=== PATIENT | male | born 1955 | race American Indian/Alaskan Native ===

== ENCOUNTER 2018-06-25 14:36 | Emergency (ER) | payer MEDICARE ==
[2018-06-25] MEDS ORDERED: Aspirin 81 MG Tab.Chew PO ONE (15:10)
[2018-06-25] MEDS ORDERED: Ondansetron 4 MG/2 ML SDV IVPUSH ONE (15:12)
[2018-06-25] MEDS ORDERED: fentaNYL 100 MCG/2 ML SDV IVPUSH ONE (15:12)
--- NOTE | 2018-06-25 15:13 | EDM.PDOC ---
ED HPI GENERAL MEDICAL PROBLEM - General Chief Complaint: Chest Pain Stated Complaint: CHEST PRESSURE/NOT SEEING CLEARLY Time Seen by Provider: 06/25/18 15:07 Source of Information: Reports: Patient History Limitations: Reports: No Limitations - History of Present Illness INITIAL COMMENTS - FREE TEXT/NARRATIVE: 63-year-old male of [place] ancestry presents to the ED with pressure sensation in both of his shoulders. He feels like there is a heavy weight like a backpack pushing down on both of his shoulders. This makes a mildly short of breath but he describes as a deep aching pressure discomfort. Patient has a history of myocardial infarction and has 2 stents placed at 2 different intervals. He does have a history of congestive heart failure as well. He states his cough if any is usually clear sputum production. Denies any hemoptysis. He is on Eliquis. Is also on a baby aspirin daily but she did take today. 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 His other complaint is that he is vision is not right. This is likely because he is hypotensive with his initial BP only 88 systolic. He feels his vision is blurry at times. He states he usually in the 140s and 150s. Denies any pain in his mid back anterior chest or abdomen to suggest aortic dissection. Pain started about 1300 hrs. today. At the bus stop in [facility] when the pain came on. He did not take any extra medications today. Onset: Today Onset Date: 06/25/18 Onset Time: 13:00 Duration: Hour(s): (2 hours prior to arriving in the ED) Location: Reports: Chest (Bennie both shoulders upper frontal chest. No radiation into his arms) Quality: Reports: Ache, Pressure Severity: Moderate (5-6 out of 10) Improves with: Reports: None Worsens with: Reports: None Context: Denies: Activity, Exercise, Lifting, Sick Contact, Trauma, Other Associated Symptoms: Reports: No Other Symptoms, Cough (Chronic cough usually have thick tenacious white or clear sputum), Malaise, Nausea/Vomiting, Shortness of Breath (Mild nausea today), Other (Patient has severe peripheral vascular disease and gets pain in his). 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: Other (see below) (None.) Bilateral Shoulder Pain Score (Numeric/FACES): 7 - Related Data Allergies Allergy/AdvReac Type Severity Reaction Status Date / Time No Known Allergies Allergy Verified 06/25/18 14:49 Home Meds: Home Meds Albuterol Sulfate [Proair Hfa] 1 - 2 puff IH Q4HR PRN 06/25/18 [History] Apixaban [Eliquis] 5 mg PO BID 06/25/18 [History] Aspirin [Halfprin] 81 mg PO DAILY 06/25/18 [History] Carvedilol 12.5 mg PO BEDTIME 06/25/18 [History] Carvedilol [Coreg] 25 mg PO DAILY 06/25/18 [History] Cyanocobalamin (Vitamin B-12) [Cyanocobalamin Injection] 1,000 mcg SQ ASDIRECTED 06/25/18 [History] Diclofenac Sodium [Voltaren 1%] 2 gm TP BID 06/25/18 [History] Dulaglutide [Trulicity] 0.75 mg SQ WEEKLY 06/25/18 [History] Enalapril [Vasotec] 5 mg PO DAILY 06/25/18 [History] Isosorbide Mononitrate [Isosorbide Mononitrate ER] 30 mg PO BEDTIME 06/25/18 [ History] Isosorbide Mononitrate [Isosorbide Mononitrate ER] 60 mg PO DAILY 06/25/18 [ History] Oxybutynin [Oxybutynin ER] 5 mg PO DAILY 06/25/18 [History] Pnv,Calcium 72/Iron/Folic Acid [ Plus Tablet] 1 tab PO DAILY 06/25/18 [ History] Potassium Chloride [Klor-Con 10] 10 meq PO DAILY 06/25/18 [History] Tamsulosin [Tamsulosin 24 Hr] 0.4 mg PO BEDTIME 06/25/18 [History] atorvaSTATin [Lipitor] 10 mg PO DAILY 06/25/18 [History] Past Medical History Cardiovascular History: Reports: Arrhythmia Endocrine/Metabolic History: Reports: Diabetes, Type II - Past Surgical History Cardiovascular Surgical History: Reports: AICD, Pacer Social & Family History - Tobacco Use Smoking Status *Q: Never Smoker - Caffeine Use Caffeine Use: Reports: None - Recreational Drug Use Recreational Drug Use: No - Living Situation & Occupation Living situation: Reports: Occupation: Retired ED ROS GENERAL - Review of Systems Review Of Systems: See Below Constitutional: Reports: Malaise, Weakness, Fatigue, Decreased Appetite. Denies : Fever, Chills, Weight Loss HEENT: Reports: Glasses, Hearing Loss Respiratory: Reports: Shortness of Breath (He wears hearing aids in both ears.) , Cough. Denies: Wheezing, Pleuritic Chest Pain, Hemoptysis (Occasional cough up some white or clear sputum production.) Cardiovascular: Reports: Blood Pressure Problem, Claudication (Usually runs too high. Better over the last 2 weeks since his carvedilol and Imdur were increased. He can't walk more than half a block due to shortness of breath and claudication both in his), Dyspnea on Exertion ( blood tox and his calves), Edema, Lightheadedness (Trace edema both lower extremities chronically). Denies : Chest Pain, Orthopnea ( today he feels lightheaded and dizzy), Palpitations Endocrine: Reports: Fatigue GI/Abdominal: Reports: Constipation (Occasional prongs with constipation.). Denies: Abdominal Pain : Reports: Frequency, Other (Nocturia usually 2-3 times. Has known BPH.) Musculoskeletal: Reports: Neck Pain, Shoulder Pain (Lateral knee neck and shoulder pain), Back Pain, Joint Pain Skin: Reports: Bruising (Bruises easy as he is on Plavix and aspirin.) Neurological: Reports: No Symptoms Psychiatric: Reports: No Symptoms Hematologic/Lymphatic: Reports: No Symptoms Immunologic: Reports: No Symptoms ED EXAM, GENERAL - Physical Exam Exam: See Below Exam Limited By: No Limitations General Appearance: Alert, WD/WN, No Apparent Distress, Other (Vital signs show his BP to be 89/60 with sats of 94% on room air. Pulse is 76 and sinus.) Eye Exam: Bilateral Eye: Normal Inspection Throat/Mouth: Normal Lips, Other Head: Atraumatic, Normocephalic Neck: Normal Inspection, Limited Range of Motion, Tender Lateral (Tender bilaterally with crepitus on movement.). No: Supple, Non-Tender Respiratory/Chest: Lungs Clear, Decreased Breath Sounds. No: Respiratory Distress, Rales, Rhonchi (Sounds are diminished of the lower 20% of lung bach but no adventitial sounds are noted), Wheezing Cardiovascular: Regular Rate, Rhythm, No Murmur, No Rub. No: Normal Peripheral Pulses, No Edema, No Gallop Peripheral Pulses: 0: Posterior Tibial (L) (Pulses are palpable below the femorals bilaterally. He has no hair on his lower extremities either indicating significant peripheral vascular disease. Both lower extremities are very cold to touch particularly the right side.), Posterior Tibial (R), Dorsalis Pedis (L) , Dorsalis Pedis (R) GI/Abdominal: Normal Bowel Sounds, Soft, Non-Tender, No Organomegaly, No Abnormal Bruit, No Mass, Pelvis Stable Back Exam: Normal Inspection, Full Range of Motion, Other (No spinal tenderness appreciated on examination). No: CVA Tenderness (L), CVA Tenderness (R) Neurological: Alert, Oriented, CN II-XII Intact, Normal Cognition. No: Normal Gait Psychiatric: Normal Affect, Normal Mood Skin Exam: Warm, Dry, Intact, Normal Color, No Rash EKG INTERPRETATION EKG Date: 06/25/18 Time: 14:54 Rhythm: NSR Rate (Beats/Min): 77 Badger: LAD-Left Badger Deviation (Mild left axis deviation of -9.) P-Wave: Present QRS: Other (Early R-wave progression suggest right ventricular purge the pattern versus septal hypertrophy pattern. Otherwise decreased voltage in the limb leads. Give some consideration to possible old posterior wall infarct. Left axis deviation -9 nonspecific intraventricular conduction delay.) ST-T: Other (T-wave inversion in 1 and aVL cannot rule out ischemia.) QT: Prolonged (Mildly prolonged) EKG Interpretation Comments: Abnormal ECG Course - Vital Signs Last Recorded V/S: Last Vital Signs Temp 36.3 C 06/25/18 14:46 Pulse 76 06/25/18 14:46 Resp 14 06/25/18 14:46 BP 89/60 L 06/25/18 14:46 Pulse Ox 94 L 06/25/18 14:46 - Orders/Labs/Meds Orders: Active Orders 24 hr Category Date Time Status EKG Documentation Completion [RC] STAT Care 06/25/18 15:13 Active EKG Documentation Completion [RC] STAT Care 06/25/18 17:39 Active Howard Catheter Insertion [Insert Urinary Catheter] [OM. Care 06/25/18 17:45 Ordered PC] Q24H Urinary Catheter Assessment [RC] ASDIRECTED Care 06/25/18 17:36 Active Labs: Laboratory Tests 06/25/18 06/25/18 06/25/18 Range/Units 15:05 15:05 15:05 WBC 8.14 (4.23-9.07) K/mm3 RBC 4.98 (4.63-6.08) M/mm3 Hgb 14.7 (13.7-17.5) gm/L Hct 45.1 (40.1-51.0) % MCV 90.6 (79.0-92.2) fl MCH 29.5 (25.7-32.2) pg MCHC 32.6 (32.2-35.5) g/dl RDW Std Deviation 42.1 (35.1-43.9) fL Plt Count 186 (163-337) K/mm3 MPV 10.8 (9.4-12.3) fl Neutrophils % (Manual) 75 H (40-60) % Band Neutrophils % 0 (0-10) % Lymphocytes % (Manual) 23 (20-40) % Atypical Lymphs % 0 % Monocytes % (Manual) 2 (2-10) % Eosinophils % (Manual) 0 L (0.8-7.0) % Basophils % (Manual) 0 L (0.2-1.2) Platelet Estimate Adequate Plt Morphology Comment Normal RBC Morph Comment Normal PT 11.0 (9.5-12.1) SECONDS INR 1.01 APTT 27 (24-31) SECONDS Sodium 141 (136-145) mEq/L Potassium 4.4 (3.5-5.1) mEq/L Chloride 104 (98-107) mEq/L Carbon Dioxide 27 (21-32) mEq/L Anion Gap 14.4 (5-15) BUN 26 H (7-18) mg/dL Creatinine 1.5 H (0.7-1.3) mg/dL Est Cr Clr Drug Dosing 54.61 mL/min Estimated GFR (MDRD) 47 (>60) mL/min BUN/Creatinine Ratio 17.3 (14-18) Glucose 190 H (80-115) mg/dL Lactic Acid (0.4-2.0) mmol/L Calcium 9.2 (8.5-10.1) mg/dL Magnesium 2.0 (1.8-2.4) mg/dl Total Bilirubin 0.5 (0.2-1.0) mg/dL AST 20 (15-37) U/L ALT 31 (16-63) U/L Alkaline Phosphatase 85 (46-116) U/L CK-MB (CK-2) 1.1 (0-3.6) ng/ml Troponin I < 0.017 (0.00-0.056) ng/mL C-Reactive Protein < 0.2 (<1.0) mg/dL NT-Pro-B Natriuret Pep (0-125) pg/mL Total Protein 7.5 (6.4-8.2) g/dl Albumin 3.4 (3.4-5.0) g/dl Globulin 4.1 gm/dL Albumin/Globulin Ratio 0.8 L (1-2) Urine Color (Yellow) Urine Appearance (Clear) Urine pH (5.0-8.0) Ur Specific [place] (1.005-1.030) Urine Protein (Negative) Urine Glucose (UA) (Negative) Urine Ketones (Negative) Urine Occult Blood (Negative) Urine Nitrite (Negative) Urine Bilirubin (Negative) Urine Urobilinogen (0.2-1.0) Ur Leukocyte Esterase (Negative) Urine RBC (0-5) /hpf Urine WBC (0-5) /hpf Ur Epithelial Cells Ur Squamous Epith Cells (0-5) /hpf Urine Bacteria (FEW) /hpf Urine Mucus (FEW) /hpf 06/25/18 06/25/18 06/25/18 Range/Units 15:05 17:35 17:35 WBC (4.23-9.07) K/mm3 RBC (4.63-6.08) M/mm3 Hgb (13.7-17.5) gm/L Hct (40.1-51.0) % MCV (79.0-92.2) fl MCH (25.7-32.2) pg MCHC (32.2-35.5) g/dl RDW Std Deviation (35.1-43.9) fL Plt Count (163-337) K/mm3 MPV (9.4-12.3) fl Neutrophils % (Manual) (40-60) % Band Neutrophils % (0-10) % Lymphocytes % (Manual) (20-40) % Atypical Lymphs % % Monocytes % (Manual) (2-10) % Eosinophils % (Manual) (0.8-7.0) % Basophils % (Manual) (0.2-1.2) Platelet Estimate Plt Morphology Comment RBC Morph Comment PT (9.5-12.1) SECONDS INR APTT (24-31) SECONDS Sodium (136-145) mEq/L Potassium (3.5-5.1) mEq/L Chloride (98-107) mEq/L Carbon Dioxide (21-32) mEq/L Anion Gap (5-15) BUN (7-18) mg/dL Creatinine (0.7-1.3) mg/dL Est Cr Clr Drug Dosing mL/min Estimated GFR (MDRD) (>60) mL/min BUN/Creatinine Ratio (14-18) Glucose (80-115) mg/dL Lactic Acid 1.1 (0.4-2.0) mmol/L Calcium (8.5-10.1) mg/dL Magnesium (1.8-2.4) mg/dl Total Bilirubin (0.2-1.0) mg/dL AST (15-37) U/L ALT (16-63) U/L Alkaline Phosphatase (46-116) U/L CK-MB (CK-2) 1.0 (0-3.6) ng/ml Troponin I < 0.017 (0.00-0.056) ng/mL C-Reactive Protein (<1.0) mg/dL NT-Pro-B Natriuret Pep 3161 H (0-125) pg/mL Total Protein (6.4-8.2) g/dl Albumin (3.4-5.0) g/dl Globulin gm/dL Albumin/Globulin Ratio (1-2) Urine Color (Yellow) Urine Appearance (Clear) Urine pH (5.0-8.0) Ur Specific [place] (1.005-1.030) Urine Protein (Negative) Urine Glucose (UA) (Negative) Urine Ketones (Negative) Urine Occult Blood (Negative) Urine Nitrite (Negative) Urine Bilirubin (Negative) Urine Urobilinogen (0.2-1.0) Ur Leukocyte Esterase (Negative) Urine RBC (0-5) /hpf Urine WBC (0-5) /hpf Ur Epithelial Cells Ur Squamous Epith Cells (0-5) /hpf Urine Bacteria (FEW) /hpf Urine Mucus (FEW) /hpf 06/25/18 Range/Units 18:05 WBC (4.23-9.07) K/mm3 RBC (4.63-6.08) M/mm3 Hgb (13.7-17.5) gm/L Hct (40.1-51.0) % MCV (79.0-92.2) fl MCH (25.7-32.2) pg MCHC (32.2-35.5) g/dl RDW Std Deviation (35.1-43.9) fL Plt Count (163-337) K/mm3 MPV (9.4-12.3) fl Neutrophils % (Manual) (40-60) % Band Neutrophils % (0-10) % Lymphocytes % (Manual) (20-40) % Atypical Lymphs % % Monocytes % (Manual) (2-10) % Eosinophils % (Manual) (0.8-7.0) % Basophils % (Manual) (0.2-1.2) Platelet Estimate Plt Morphology Comment RBC Morph Comment PT (9.5-12.1) SECONDS INR APTT (24-31) SECONDS Sodium (136-145) mEq/L Potassium (3.5-5.1) mEq/L Chloride (98-107) mEq/L Carbon Dioxide (21-32) mEq/L Anion Gap (5-15) BUN (7-18) mg/dL Creatinine (0.7-1.3) mg/dL Est Cr Clr Drug Dosing mL/min Estimated GFR (MDRD) (>60) mL/min BUN/Creatinine Ratio (14-18) Glucose (80-115) mg/dL Lactic Acid (0.4-2.0) mmol/L Calcium (8.5-10.1) mg/dL Magnesium (1.8-2.4) mg/dl Total Bilirubin (0.2-1.0) mg/dL AST (15-37) U/L ALT (16-63) U/L Alkaline Phosphatase (46-116) U/L CK-MB (CK-2) (0-3.6) ng/ml Troponin I (0.00-0.056) ng/mL C-Reactive Protein (<1.0) mg/dL NT-Pro-B Natriuret Pep (0-125) pg/mL Total Protein (6.4-8.2) g/dl Albumin (3.4-5.0) g/dl Globulin gm/dL Albumin/Globulin Ratio (1-2) Urine Color Yellow (Yellow) Urine Appearance Clear (Clear) Urine pH 6.0 (5.0-8.0) Ur Specific [place] 1.015 (1.005-1.030) Urine Protein 1+ H (Negative) Urine Glucose (UA) Negative (Negative) Urine Ketones Negative (Negative) Urine Occult Blood 2+ H (Negative) Urine Nitrite Negative (Negative) Urine Bilirubin Negative (Negative) Urine Urobilinogen 0.2 (0.2-1.0) Ur Leukocyte Esterase Negative (Negative) Urine RBC 30-40 H (0-5) /hpf Urine WBC 0-5 (0-5) /hpf Ur Epithelial Cells Not Reportable Ur Squamous Epith Cells 0-5 (0-5) /hpf Urine Bacteria Not seen (FEW) /hpf Urine Mucus Not seen (FEW) /hpf Meds: Medications Discontinued Medications Generic Name Dose Route Start Last Admin Trade Name Freq PRN Reason Stop Dose Admin Aspirin 324 mg 06/25/18 15:10 06/25/18 15:15 Aspirin PO 06/25/18 15:11 324 mg ONETIME ONE Administration Fentanyl 50 mcg 06/25/18 15:12 06/25/18 15:22 Sublimaze IVPUSH 06/25/18 15:13 50 mcg ONETIME ONE Administration Furosemide 40 mg 06/25/18 17:44 06/25/18 18:17 Lasix IVPUSH 06/25/18 17:45 40 mg NOW ONE Administration Sodium Chloride 1,000 mls @ 250 mls/hr 06/25/18 15:15 06/25/18 15:15 Normal Saline IV 250 mls/hr ASDIRECTED RASHMI Administration Sodium Chloride 1,000 mls @ 999 mls/hr 06/25/18 15:40 Normal Saline IV ASDIRECTED RASHMI Norepinephrine Bitartrate 4 mg 250 mls @ 18.75 mls/hr 06/25/18 16:00 18:00 / Dextrose/Water IV 3 mcg/min TITRATE RASHMI 11.25 mls/hr Titration Protocol 5 MCG/MIN Sodium Chloride 1,000 mls @ 50 mls/hr 06/25/18 18:00 04/03/19 18:17 Normal Saline IV 50 mls/hr ASDIRECTED RASHMI Administration Lidocaine HCl 10 ml 06/25/18 17:37 06/25/18 17:43 Xylocaine 2% Jelly MUCMEM 06/25/18 17:38 10 ml ONETIME ONE Administration Lidocaine HCl Confirm 06/25/18 17:38 06/25/18 17:44 Xylocaine 2% Jelly Administered 06/25/18 17:39 Not Given Dose 10 ml .ROUTE .STK-MED ONE Norepinephrine Bitartrate Confirm 06/25/18 15:49 06/25/18 16:00 Levophed Administered 06/25/18 15:50 Not Given Dose 4 mg .ROUTE .STK-MED ONE Ondansetron HCl 4 mg 06/25/18 15:12 06/25/18 15:22 Zofran IVPUSH 06/25/18 15:13 4 mg ONETIME ONE Administration - Radiology Interpretation Free Text/Narrative:: 63-year-old male who has a history of coronary disease with 2 previous stent placements for myocardial infarctions greater than 5 years ago. Presents to the ED with heaviness in both of his shoulders more in the front upper anterior chest bilaterally since about 1300 hrs. today. Also feels like his vision is blurred at times. At time of presentation he is hypotensive with BP 89/64. Central chest pain no pain in his mid intrascapular area or abdominal area to suggest dissection of the aorta. He reports that recently his supervising editor trailer increased his Imdur and carvedilol about 2 weeks ago. He states he has a mild cough of whitish sputum production. Plan IV normal saline at 250 mils per hour bolus and will see how her response to this. He does have a history of congestive heart failure. Routine labs including cardiac markers and one view chest and ECG of course to be obtained - Re-Assessments/Exams Free Text/Narrative Re-Assessment/Exam: 06/25/18 15:51: Pressure started to fall gradually but ended up going as low as 67 and 64 systolic. This was after 750 mils of normal saline were instilled. Therefore elected to start him on levo fed drip at 5 mcg/m. His chest x-ray reveals a heart size upper limits of normal for portable technique. There is a tortuous thoracic aorta difficult to exclude aneurysmal dilatation. Slight atelectasis is noted within the left lung base. Lungs otherwise are clear old healed right clavicle fracture is appreciated AICD present left upper anterior chest. 06/25/18 16:52 pressure is currently up to 100/62 on 6 mcg/m of levopfed. Heart rate is 66 and sats are 96% on 2 L by nasal cannula. 06/25/18 16:54 Labs are back revealing a normal white count at 8.14. Differential 75% neutrophils with no band cells reported hemoglobin 14.7 with hematocrit of 45.1. Platelet count is 186,000. PT is 11.0 with an INR of 1.01. PTT is 27. Anion gap is 14.4. B1 is 26 with a creatinine of 1.5. Estimated GFR is 47 stage III chronic kidney disease. Glucose is 190. Calcium is 9.2. Magnesium is 2.0. Liver function is normal. CK-MB is 1.1 with a troponin I of less than 0.017. C-reactive protein is less than 0.2 BNP is elevated at 3161. Total protein is 7.45 with a albumin fraction of 3.4. 06/25/18 17:41 I spoken with 1 call nurse at [facility] in [place] and he directed me to the store receiving specialist who then directed me to the emergency department. Patient's is now here and she indicates that there is a physician rehab care assistant looking after this patient in [facility] on cardiology services. She indicates that his carvedilol and his Imdur have both been increased substantially over the last 2 weeks. Is to the [facility] was increased by 5 units yesterday as well. When he started to complain that he was not feeling well she did check his blood sugar shortly after noon hour and it was 251. She went ahead and gave him his insulin per schedule. Here his blood sugar was in the 170s. It appears that he is significantly hypotensive likely from too much Imdur and/or carvedilol or combination thereof. With his blood sugar back in the 120s his vision has returned to normal and the chest pressure discomfort has also abated. I will have a repeat ECG done and a Howard catheter placed since he has not made much urine at all today with a urometer. They don't have the dosages of his medication with them and the increases that have been made are also not available to me. I therefore spoke with Dr. Francisco ER physician and he will attend the patient in the ED and then they'll decide on disposition from there. At present his blood pressure is 117/77 and we have been able to decrease the Levophed drip to 4 mcg/m. Repeat cardiac enzymes have been ordered at 1700 hrs. but did not get drawn until 1730 hrs. Second ECG is also pending. Plan will be to transfer him to [facility] per [facility]. I also will give him Lasix 40 mg IV since his BNP is greater than 3100. This will be worsened by a liter of fluid that I gave him for his low blood pressure. 06/25/18 18:05 BP at present is 124/66. Pulse is 78 in sinus sats are 95% on 2 L. In etc. her to take him to [place] at this time. Will titrate his meal fed downwards to keep his pressure at around 110 systolic . 06/25/18 18:32 seconds had a cardiac markers came back normal as well. CK-MB fraction is 1.1 and troponin I is less than 0.017 suggesting no signs of any active ischemia. Departure - Departure Time of Disposition: 18:07 Disposition: DC/Tfer to Acute Hospital 02 Reason for Transfer *Q: Other Condition: Fair Clinical Impression: Atypical chest pain, Hypotension due to drugs Referrals: PCP,Unknown [Primary Care Provider] - Forms: ED Department Discharge Additional Instructions: Patient transferred to [facility] in [facility] due to need for inotropic support of his blood pressure while in the ED. Associated congestive heart failure. We do not have an accurate list of his current medications but apparently they have been adjusted upwards particularly carvedilol and Imdur over the last few weeks. Apparently to [facility] was increased by 5 units yesterday. I suspect his current symptoms of hypotension or secondary to too much medication. Second set of cardiac markers were ordered at 1730 hrs. and I will send them along with a become available. Second ECG is essentially unchanged from the first one 2 hours ago. - My Orders Last 24 Hours: My Active Orders 06/25/18 15:13 EKG Documentation Completion [RC] STAT 06/25/18 17:36 Urinary Catheter Assessment [RC] ASDIRECTED 06/25/18 17:39 EKG Documentation Completion [RC] STAT 06/25/18 17:45 Howard Catheter Insertion [Insert Urinary Catheter] [OM.PC] Q24H - Assessment/Plan Last 24 Hours: My Active Orders 06/25/18 15:13 EKG Documentation Completion [RC] STAT 06/25/18 17:36 Urinary Catheter Assessment [RC] ASDIRECTED 06/25/18 17:39 EKG Documentation Completion [RC] STAT 06/25/18 17:45 Howard Catheter Insertion [Insert Urinary Catheter] [OM.PC] Q24H
[2018-06-25] MEDS ORDERED: Sodium Chloride 0.9% 1,000 ML IV SCH ×3 (15:15→18:00)
--- NOTE | 2018-06-25 15:40 | CR ---
Chest: Portable view of the chest was obtained. Comparison: No previous chest x-ray. Heart size appears within normal limits for portable technique. Tortuous thoracic aorta is seen, difficult to exclude aneurysmal dilatation. Slight atelectasis is noted within the left lung base. Lungs otherwise are clear. Old healed right clavicle fracture is noted. AICD is present. Impression: 1. 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 2. Left basilar atelectasis. 3. Other incidental findings. Diagnostic code #3
[2018-06-25] MEDS ORDERED: Norepinephrine 4 MG/4 ML SDV ONE (15:49)
[2018-06-25] MEDS ORDERED: Norepinephrine 4 MG in Dextrose 5% in Water 246 ML IV SCH ×2 (16:00)
[2018-06-25] MEDS ORDERED: Lidocaine 2% Jelly 10 ML Urojet MUCMEM ONE (17:37)
[2018-06-25] MEDS ORDERED: Lidocaine 2% Jelly 10 ML Urojet ONE (17:38)
[2018-06-25] MEDS ORDERED: Furosemide 40 MG/4 ML VIAL IVPUSH ONE (17:44)
== END 2018-06-25 18:27 ==
LOC: JD.ED 14:36
DX: I95.2 Hypotension due to drugs (principal); R07.89 Other chest pain; E11.9 Type 2 diabetes mellitus without complications; Z79.899 Other long term (current) drug therapy
CPT/HCPCS: 36415; 51702; 71045; 80053; 81001; 82553; 83605; 83735; 83880; 84484; 85007; 85027; 85610; 85730; 86140; 93005; 96361; 96365; 96366; 96374; 96375; 99285; A9270; J1940; J2405; J3010; J7040; J7060; 93010

== ENCOUNTER 2019-09-25 07:41 | Emergency (ER) | payer MEDICARE ==
--- NOTE | 2019-09-25 07:56 | EDM.PDOC ---
ED HPI GENERAL MEDICAL PROBLEM - General Chief Complaint: Cardiovascular Problem Stated Complaint: [facility] Time Seen by Provider: 09/25/19 07:50 Source of Information: Reports: Patient History Limitations: Reports: No Limitations - History of Present Illness INITIAL COMMENTS - FREE TEXT/NARRATIVE: 64-year-old male of [place] ancestry presents to the ED after his defibrillator pacemaker discharge x2 this morning. He states the first 1 was around 0 600 and then there was another 1 shortly thereafter arrived back to back discharges. This started about 0600 hrs. and awoke him from sleep abruptly with pain and shortness of breath. Reports that he screamed after the initial 1 fired. This pacemaker /defibrillator has been placed within the last 6 months. He had one prior that discharge once in the past. Change of the pacemaker/defibrillator occurred because of battery failure. Patient has a history of myocardial ischemia and cardiomyopathy. History of arrhythmias. Type II diabetic control primarily with Trulicity but has insulin if needed with meals. He did take all of his medications this morning except his Lasix. This he takes apparently on a as needed basis when he notes his feet are swelling his weight goes up. At present he states he still has some aching in his left shoulder and left arm. He did take nitroglycerin after the defibrillator fired x2. Apparently this is a 0.4 mg sublingual tablet. No pain in his back. No central chest pain. No cough or sputum production. Does not feel any more short of breath than normal. He or his did speak with duck bill operator Dr. Pedroza this morning. He advised to come to the closest hospital to have his pacemaker interrogated and the then likely plan on coming to [place]. Onset: Today, Sudden Onset Date: 09/25/19 Onset Time: 06:00 Duration: Minutes: Location: Reports: Chest, Upper Extremity, Left (Left shoulder left arm pain almost down to the wrist.) Quality: Reports: Ache Severity: Moderate Improves with: Reports: None Worsens with: Reports: None Context: Reports: Other (Left shoulder arm pain occurred after his defibrillator pacemaker discharge x2 this morning around 0600 hrs.). Denies: Activity, Exercise, Lifting, Sick Contact, Trauma Associated Symptoms: Reports: Shortness of Breath (Short of breath on exertion chronically. No worse than normal.). Denies: Confusion, Chest Pain, Cough, cough w sputum, Diaphoresis, Fever/Chills, Headaches, Loss of Appetite, Malaise, Nausea/Vomiting, Rash, Seizure, Syncope, Weakness Treatments SCREEN WRITER: Reports: Other (see below) (He did take his normal medications and a nitroglycerin 0.4 mg tablet this morning. Of note the patient is anticoagulated with aspirin and Eliquis 5 mg twice daily.) Left Arm Pain Score (Numeric/FACES): 3 - Related Data Allergies Allergy/AdvReac Type Severity Reaction Status Date / Time No Known Allergies Allergy Verified 09/25/19 07:56 Home Meds: Home Meds Albuterol Sulfate [Proair Hfa] 1 - 2 puff IH Q4HR PRN 06/25/18 [History] Aspirin [Halfprin] 81 mg PO DAILY 06/25/18 [History] Cyanocobalamin (Vitamin B-12) [Cyanocobalamin Injection] 1,000 mcg SQ ASDIRECTED 06/25/18 [History] Diclofenac Sodium [Voltaren 1%] 2 gm TP BID 06/25/18 [History] Dulaglutide [Trulicity] 0.75 mg SQ WEEKLY 06/25/18 [History] Isosorbide Mononitrate [Isosorbide Mononitrate ER] 60 mg PO BEDTIME 06/25/18 [History] Pnv,Calcium 72/Iron/Folic Acid [ Plus Tablet] 1 tab PO DAILY 06/25/18 [History] Tamsulosin [Tamsulosin 24 Hr] 0.4 mg PO BEDTIME 06/25/18 [History] atorvaSTATin [Lipitor] 10 mg PO DAILY 06/25/18 [History] carvediloL [Carvedilol] 12.5 mg PO BID 06/25/18 [History] Clopidogrel Bisulfate [Plavix] 75 mg PO DAILY 09/25/19 [History] Dapagliflozin Propanediol [Farxiga] 10 mg PO DAILY 09/25/19 [History] Docusate Sodium [Colace] 100 mg PO BID 09/25/19 [History] Enalapril [Vasotec] 5 mg PO DAILY 09/25/19 [History] Furosemide [Lasix] 20 mg PO DAILY 09/25/19 [History] Insulin Detemir [Levemir] 28 unit PO DAILY 09/25/19 [History] Montelukast [Singulair] 10 mg PO BEDTIME 09/25/19 [History] Nitroglycerin 0.4 mg SL ASDIRECTED PRN 09/25/19 [History] Ranolazine [Ranexa] 500 mg PO BID 09/25/19 [History] Tiotropium Br/Olodaterol HCl [Stiolto Respimat Inhal Wink] 2 puff INH DAILY 09/25/19 [History] Zolpidem [Ambien] 10 mg PO BEDTIME 09/25/19 [History] fentaNYL [Duragesic] 75 mcg TD ASDIRECTED 09/25/19 [History] oxyCODONE 15 mg PO Q4HR 09/25/19 [History] Past Medical History Cardiovascular History: Reports: Arrhythmia (Interrogation of his pacemaker this morning revealed that he had likely rapid ventricular tachycardia greater than 240 bpm. His pacemaker defibrillator tried to override it twice but failed and therefore he received 2 shocks approximately 0 537 and 0539 hrs. this morning which was successful in converting him back to sinus rhythm.), CAD, Cardiomyopathy, Heart Failure, Hypertension, [place], Pacemaker, PVD, Stents (Patient apparently has [address] both placed at separate intervals.) Respiratory History: Reports: COPD (His oxygen at home up to 3 L/min at bedtime and 2 to 3 L during the daytime.) Genitourinary History: Reports: BPH (Tamsulosin for prostate.) Endocrine/Metabolic History: Reports: None, Diabetes, Type II Other Endocrine/Metabolic History: Primarily controlled with Trulicity 0.75mg q. once weekly. Does have insulin to be used on a regular basis with meals if needed. Rarely uses it. - Past Surgical History Cardiovascular Surgical History: Reports: AICD, Pacer - History Comment History Comment: Chronic pain syndrome. Tape patient takes oxycodone every 6 hours. Social & Family History - Caffeine Use Caffeine Use: Reports: None - Living Situation & Occupation Living situation: Reports: Occupation: Retired ED ROS GENERAL - Review of Systems Review Of Systems: See Below Constitutional: Reports: Malaise, Fatigue. Denies: Fever, Chills, Decreased Appetite HEENT: Reports: No Symptoms Respiratory: Reports: Shortness of Breath. Denies: Wheezing, Pleuritic Chest Pain, Cough, Sputum Cardiovascular: Reports: Blood Pressure Problem, Dyspnea on Exertion (Mildly lower extremities.), Edema. Denies: Chest Pain, Claudication, Lightheadedness, Orthopnea Endocrine: Reports: Fatigue ( Chronically no worse than normal.) GI/Abdominal: Reports: No Symptoms : Reports: Frequency, Other (Nocturia x2-3. 1 benign prostatic hypertrophy) Musculoskeletal: Reports: Back Pain, Joint Pain (His hips and shoulders at times.) Skin: Reports: No Symptoms Neurological: Reports: No Symptoms Psychiatric: Reports: No Symptoms Hematologic/Lymphatic: Reports: No Symptoms Immunologic: Reports: No Symptoms ED EXAM, GENERAL - Physical Exam Exam: See Below Exam Limited By: No Limitations General Appearance: Alert, WD/WN, Anxious, Other (Temperature is 36.5 heart rate 83 and sinus respiratory is 18 with O2 sats of 95% on room air. BP 1 3484.) Head: Atraumatic, Normocephalic Neck: Normal Inspection, Supple, Non-Tender, Full Range of Motion, Other (JVD.). No: Carotid Bruit, Lymphadenopathy (L), Lymphadenopathy (R) Respiratory/Chest: No Respiratory Distress, No Accessory Muscle Use, Chest Non- Tender, Rales (New fine crackles both bases posteriorly.), Other (Healing well.). No: Normal Breath Sounds, Respiratory Distress Cardiovascular: Regular Rate, Rhythm, No Edema, No Gallop, No Murmur, No Rub. No: Normal Peripheral Pulses Peripheral Pulses: 1+: Posterior Tibial (L), Posterior Tibial (R), Dorsalis Pedis (L), Dorsalis Pedis (R), 2+: Carotid (L), Carotid (R) GI/Abdominal: Normal Bowel Sounds, Soft, Non-Tender, No Organomegaly, No Abnormal Bruit, No Mass, Pelvis Stable Extremities: Normal Inspection, Normal Range of Motion, Non-Tender, No Pedal Edema Neurological: Alert, Oriented, CN II-XII Intact, Normal Cognition Psychiatric: Normal Mood (Mildly anxious.), Anxious Skin Exam: Warm, Dry, Intact, Normal Color, No Rash EKG INTERPRETATION EKG Date: 09/25/19 Time: 07:50 Rhythm: NSR Rate (Beats/Min): 81 [place]: LAD-Left [place] Deviation (Minimal left axis deviation -11 degrees.) P-Wave: Enlarged (Left atrial hypertrophy pattern.) QRS: Other (Early R wave transition V2 consider right ventricular hypertrophy pattern versus septal hypertrophy.) ST-T: Other (Diffuse T wave changes with inversion V2 and then flattening in the anterior leads. T wave inversion 1 and aVL. There is near Q wave in 3 and aVF. Consider old inferior wall myocardial infarction.) QT: Prolonged (Minimally prolonged.) EKG Interpretation Comments: Abnormal ECG Course - Vital Signs Last Recorded V/S: Last Vital Signs Temp 36.5 C 09/25/19 07:46 Pulse 83 09/25/19 07:46 Resp 18 09/25/19 07:46 BP 134/84 09/25/19 07:46 Pulse Ox 89 L 09/25/19 07:46 - Orders/Labs/Meds Orders: Active Orders 24 hr Category Date Time Status Blood Glucose Check, Bedside [RC] ONETIME Care 09/25/19 07:57 Active EKG Documentation Completion [RC] STAT Care 09/25/19 07:58 Active Peripheral IV Care [RC] . DIRECTED Care 09/25/19 07:58 Active CORONAVIRUS COVID-19 RAPID PCR [MOLEC] Stat Lab 09/25/19 09:08 Received URINALYSIS W/MICROSCOPIC [UA W/MICROSCOPIC] [URIN] Stat Lab 09/25/19 07:57 Ordered Sodium Chloride 0.9% [Normal Saline] 1,000 ml Med 09/25/19 08:45 Active IV ASDIRECTED Sodium Chloride 0.9% [Saline Flush] Med 09/25/19 07:58 Active 10 ml FLUSH ASDIRECTED PRN Peripheral IV Insertion Adult [OM.PC] Stat Oth 09/25/19 07:58 Ordered Medication Orders Sodium Chloride (Normal Saline) 1,000 mls @ 75 mls/hr IV ASDIRECTED RASHMI Last Admin: 09/25/19 09:07 Dose: 75 mls/hr Documented by: DAYANA Sodium Chloride (Saline Flush) 10 ml FLUSH ASDIRECTED PRN PRN Reason: Keep Vein Open Last Admin: 09/25/19 08:37 Dose: 10 ml Documented by: DAYANA Labs: Laboratory Tests 09/25/19 09/25/19 09/25/19 Range/Units 08:10 08:10 08:10 WBC 8.05 (4.23-9.07) K/mm3 RBC 5.49 (4.63-6.08) M/mm3 Hgb 16.4 D (13.7-17.5) gm/dl Hct 51.9 H (40.1-51.0) % MCV 94.5 H D (79.0-92.2) fl MCH 29.9 (25.7-32.2) pg MCHC 31.6 L (32.2-35.5) g/dl RDW Std Deviation 47.1 H (35.1-43.9) fL Plt Count 168 (163-337) K/mm3 MPV 10.8 (9.4-12.3) fl Neut % (Auto) 76.7 H (34.0-67.9) % Lymph % (Auto) 14.8 L (21.8-53.1) % [place] % (Auto) 7.0 (5.3-12.2) % Eos % (Auto) 1.2 (0.8-7.0) Baso % (Auto) 0.1 (0.1-1.2) % Neut # (Auto) 6.17 H (1.78-5.38) K/mm3 Lymph # (Auto) 1.19 L (1.32-3.57) K/mm3 [place] # (Auto) 0.56 (0.30-0.82) K/mm3 Eos # (Auto) 0.10 (0.04-0.54) K/mm3 Baso # (Auto) 0.01 (0.01-0.08) K/mm3 PT 10.6 (9.7-12.0) SECONDS INR 0.97 APTT (22-31) SECONDS Sodium 140 (136-145) mEq/L Potassium 3.9 (3.5-5.1) mEq/L Chloride 105 (98-107) mEq/L Carbon Dioxide 31 (21-32) mEq/L Anion Gap 7.9 (5-15) BUN 18 (7-18) mg/dL Creatinine 1.1 (0.7-1.3) mg/dL Est Cr Clr Drug Dosing 73.48 mL/min Estimated GFR (MDRD) > 60 (>60) mL/min BUN/Creatinine Ratio 16.4 (14-18) Glucose 176 H (80-115) mg/dL POC Glucose (80-115) mg/dL Calcium 8.7 (8.5-10.1) mg/dL Magnesium 2.1 (1.8-2.4) mg/dl Total Bilirubin 0.4 (0.2-1.0) mg/dL AST 12 L (15-37) U/L ALT 20 (16-63) U/L Alkaline Phosphatase 89 (46-116) U/L CK-MB (CK-2) 4.2 H (0-3.6) ng/ml Troponin I 0.553 H* (0.00-0.056) ng/mL C-Reactive Protein 0.3 (<1.0) mg/dL NT-Pro-B Natriuret Pep (0-125) pg/mL Total Protein 7.3 (6.4-8.2) g/dl Albumin 3.4 (3.4-5.0) g/dl Globulin 3.9 gm/dL Albumin/Globulin Ratio 0.9 L (1-2) 09/25/19 09/25/19 09/25/19 Range/Units 08:10 08:10 08:43 WBC (4.23-9.07) K/mm3 RBC (4.63-6.08) M/mm3 Hgb (13.7-17.5) gm/dl Hct (40.1-51.0) % MCV (79.0-92.2) fl MCH (25.7-32.2) pg MCHC (32.2-35.5) g/dl RDW Std Deviation (35.1-43.9) fL Plt Count (163-337) K/mm3 MPV (9.4-12.3) fl Neut % (Auto) (34.0-67.9) % Lymph % (Auto) (21.8-53.1) % [place] % (Auto) (5.3-12.2) % Eos % (Auto) (0.8-7.0) Baso % (Auto) (0.1-1.2) % Neut # (Auto) (1.78-5.38) K/mm3 Lymph # (Auto) (1.32-3.57) K/mm3 [place] # (Auto) (0.30-0.82) K/mm3 Eos # (Auto) (0.04-0.54) K/mm3 Baso # (Auto) (0.01-0.08) K/mm3 PT (9.7-12.0) SECONDS INR APTT 27 (22-31) SECONDS Sodium (136-145) mEq/L Potassium (3.5-5.1) mEq/L Chloride (98-107) mEq/L Carbon Dioxide (21-32) mEq/L Anion Gap (5-15) BUN (7-18) mg/dL Creatinine (0.7-1.3) mg/dL Est Cr Clr Drug Dosing mL/min Estimated GFR (MDRD) (>60) mL/min BUN/Creatinine Ratio (14-18) Glucose (80-115) mg/dL POC Glucose 160 H (80-115) mg/dL Calcium (8.5-10.1) mg/dL Magnesium (1.8-2.4) mg/dl Total Bilirubin (0.2-1.0) mg/dL AST (15-37) U/L ALT (16-63) U/L Alkaline Phosphatase (46-116) U/L CK-MB (CK-2) (0-3.6) ng/ml Troponin I (0.00-0.056) ng/mL C-Reactive Protein (<1.0) mg/dL NT-Pro-B Natriuret Pep 1814 H (0-125) pg/mL Total Protein (6.4-8.2) g/dl Albumin (3.4-5.0) g/dl Globulin gm/dL Albumin/Globulin Ratio (1-2) Meds: Medications Generic Name Dose Route Start Last Admin Trade Name Freq PRN Reason Stop Dose Admin Sodium Chloride 1,000 mls @ 75 mls/hr 09/25/19 08:45 09/25/19 09:07 Normal Saline IV 75 mls/hr ASDIRECTED RASHMI Administration Sodium Chloride 10 ml 09/25/19 07:58 09/25/19 08:37 Saline Flush FLUSH 10 ml ASDIRECTED PRN Administration Keep Vein Open - Radiology Interpretation Free Text/Narrative:: 64-year-old male with known coronary disease and cardiomyopathy presents to the ED after his defibrillator pacemaker discharge x2 this morning. Interrogation reveals that he was likely in a very fast V. tach at greater than 240 beats a minute. His pacemaker defibrillator tried over pace at x2 and failed. Patient therefore required defibrillation x2 back to back at 0537hrs and again at 0539 this morning. He is left with some residual left shoulder and arm pain. No signs of ischemia on his current ECG. O2 sats 100 from 89 to 95% and therefore he was placed on oxygen 2 L/min. Clinically he is in mild congestive failure. Routine labs and cardiac markers to be done. Discussed case with duck bill operator once chest x-ray and labs are back. Saline lock started. - Re-Assessments/Exams Free Text/Narrative Re-Assessment/Exam: 09/25/19 08:21 chest x-ray done portably reveals moderate cardiomegaly. Tortuous thoracic aorta present unable to exclude aneurysmal dilatation. Left hemidiaphragm is chronically elevated as it was present on previous chest x-ray on 30 June 2018. There is: Distending the left francisco-diaphragm. This produces mild atelectasis in the left lower lobe. Pacemaker defibrillator present left upper anterior chest. Old right and left clavicular fractures appreciated. 09/25/19 08:40 Hematology reveals a normal white count at 8.05. Auto differential shows 76.7% neutrophils. Hemoglobin slightly elevated at 16.4 with hematocrit of 51.9 suggesting mild hemoconcentration. Platelet count 168,000. Patient still having significant discomfort left anterior shoulder felt to be due to pectoralis major insertion site pain. Allowed to take 1 of his own oxycodone 5/325 mg tablets for pain relief. 09/25/19 09:12 Free Text/Narrative Re-Assessment/Exam: 09/25/19 09:12 PT is 10.6 with an INR of 0.97. PTT is 27. Sodium 140 with a potassium of 3.9. Chloride 105 with a bicarb of 31. Anion gap is elevated at 7.9. BUN is 18 with a creatinine of 1.1. GFR is greater than 60. Glucose is 176. Bedside it was 160. Patient is a known diabetic. Calcium is 8.7 with a magnesium of 2.1. Liver function normal. CK-MB fraction mildly elevated at 4.2. Troponin I elevated at 0.553 with normal our lab being up to 0.056. C- reactive protein 0.3. BNP is 1814. Total protein 7.3 with an albumin fraction of 3.4. 09/25/19 09:26 I discussed the case with 1 call nurse at [facility] in [place] and I have spoken with Dr. Pedroza his duck bill operator and he agreed to the admission. Dr. Dia--hospitalist on-call has accepted care. The right now their hospital is full and they are waiting discharges. Therefore they will call us back when a bed is available so that we can arrange ambulance ground transport. 09/25/19 09:37: One call at [facility] in [facility] did call back and a bed has become available. Therefore ground transport will be notified and patient be transferred as soon as possible. He remains asymptomatic. Left shoulder pain is getting better at this time. COVID-19 screen is negative. Departure - Departure Time of Disposition: 09:44 Disposition: DC/Tfer to Acute Hospital 02 Reason for Transfer *Q: Other Condition: Fair Clinical Impression: Ventricular tachycardia, Elevated troponin I measurement, Coronary artery disease due to type 2 diabetes mellitus Congestive heart failure Qualifiers: Heart failure type: unspecified Heart failure chronicity: chronic Qualified Code(s): I50.9 - Heart failure, unspecified Left shoulder pain Qualifiers: Chronicity: acute Qualified Code(s): M25.512 - Pain in left shoulder Referrals: PCP,Not In Area [Primary Care Provider] - Forms: ED Department Discharge Additional Instructions: Patient transferred to [facility] in [place] under the care of his duck bill operator Dr. Pedroza, due to bout of ventricular tachycardia this morning that required his defibrillator /pacemaker to discharge x2 to return him to sinus rhythm. Sepsis Event Note (ED) - Focused Exam Vital Signs: Vital Signs Temp Pulse Resp BP Pulse Ox 09/25/19 07:46 36.5 C 83 18 134/84 89 L - My Orders Last 24 Hours: My Active Orders 09/25/19 07:57 Blood Glucose Check, Bedside [RC] ONETIME URINALYSIS W/MICROSCOPIC [UA W/MICROSCOPIC] [URIN] Stat 09/25/19 07:58 EKG Documentation Completion [RC] STAT Peripheral IV Care [RC] . DIRECTED Sodium Chloride 0.9% [Saline Flush] 10 ml FLUSH ASDIRECTED PRN Peripheral IV Insertion Adult [OM.PC] Stat 09/25/19 08:45 Sodium Chloride 0.9% [Normal Saline] 1,000 ml IV ASDIRECTED 09/25/19 09:08 CORONAVIRUS COVID-19 RAPID PCR [MOLEC] Stat - Assessment/Plan Last 24 Hours: My Active Orders 09/25/19 07:57 Blood Glucose Check, Bedside [RC] ONETIME URINALYSIS W/MICROSCOPIC [UA W/MICROSCOPIC] [URIN] Stat 09/25/19 07:58 EKG Documentation Completion [RC] STAT Peripheral IV Care [RC] . DIRECTED Sodium Chloride 0.9% [Saline Flush] 10 ml FLUSH ASDIRECTED PRN Peripheral IV Insertion Adult [OM.PC] Stat 09/25/19 08:45 Sodium Chloride 0.9% [Normal Saline] 1,000 ml IV ASDIRECTED 09/25/19 09:08 CORONAVIRUS COVID-19 RAPID PCR [MOLEC] Stat
[2019-09-25] MEDS ORDERED: Sodium Chloride 0.9% 10 ML Syringe FLUSH PRN (07:58)
[2019-09-25] MEDS ORDERED: Sodium Chloride 0.9% 1,000 ML IV SCH (08:45)
--- NOTE | 2019-09-25 08:59 | CR ---
Chest: Portable view of the chest was obtained. Comparison: Prior chest x-ray of 06/25/18. Slight parenchymal density above the left hemidiaphragm is seen which is stable and most likely represents chronic atelectasis from a stable elevated left hemidiaphragm. Lungs otherwise are clear. AICD is present. Tortuous thoracic aorta is noted. Old healed bilateral clavicle fractures are seen. Impression: 1. Findings as described above. 2. Nothing acute is appreciated. Diagnostic code #3 This report was dictated in MDT
== END 2019-09-25 10:00 ==
LOC: JD.ED 07:41
DX: I25.10 Atherosclerotic heart disease of native coronary artery without angina pectoris (principal); I11.0 Hypertensive heart disease with heart failure; I50.9 Heart failure, unspecified; E11.9 Type 2 diabetes mellitus without complications; I47.2 Ventricular tachycardia; M25.512 Pain in left shoulder; R79.89 Other specified abnormal findings of blood chemistry; J44.9 Chronic obstructive pulmonary disease, unspecified; I25.2 Old myocardial infarction; Z20.828 Contact with and (suspected) exposure to other viral communicable diseases; Z95.5 Presence of coronary angioplasty implant and graft; Z79.82 Long term (current) use of aspirin; Z79.02 Long term (current) use of antithrombotics/antiplatelets; Z79.899 Other long term (current) drug therapy
CPT/HCPCS: 36415; 71045; 80053; 81001; 82553; 82962; 83735; 83880; 84484; 85025; 85610; 85730; 86140; 93005; 96360; 99285; J7030; U0002; 93010

== ENCOUNTER 2020-11-11 10:33 | Emergency (ER) | payer MEDICARE, OTHER ==
--- NOTE | 2020-11-11 10:50 | EDM.PDOC ---
ED HPI GENERAL MEDICAL PROBLEM - General Chief Complaint: Chest Pain Stated Complaint: [facility] Time Seen by Provider: 11/11/20 10:34 - History of Present Illness INITIAL COMMENTS - FREE TEXT/NARRATIVE: 65-year-old male presents to the emergency room brought in by EMS with right- sided pain. Apparently the patient fall around 1 AM this morning hitting the lower margin of his ribs on the right side. The patient has been falling little more frequently this week this is the second time he is fallen. He usually might fall once or twice a month. Patient is otherwise been pretty active. Patient does have a history of heart failure he has a defibrillator in place this has not gone off recently. Patient has a history of atherosclerotic cardiovascular disease he is on Plavix but this discomfort is different from his cardiac pain. Patient is a diabetic. And is on Trulicity. His diabetes is doing much better on this regimen. Recently the patient was seen in the clinic and had his Coreg dose cut in half. According to the this has not seem to make much difference Left Chest Pain Score (Numeric/FACES): 5 - Related Data Allergies Allergy/AdvReac Type Severity Reaction Status Date / Time No Known Allergies Allergy Verified 11/11/20 10:38 Home Meds: Home Meds Albuterol Sulfate [Proair Hfa] 1 - 2 puff IH Q4HR PRN 06/25/18 [History] Aspirin [Halfprin] 81 mg PO DAILY 06/25/18 [History] Dulaglutide [Trulicity] 0.75 mg SQ WEEKLY 06/25/18 [History] Isosorbide Mononitrate [Isosorbide Mononitrate ER] 60 mg PO BEDTIME 06/25/18 [History] atorvaSTATin [Lipitor] 10 mg PO DAILY 06/25/18 [History] carvediloL [Carvedilol] 12.5 mg PO BID 06/25/18 [History] Clopidogrel Bisulfate [Plavix] 75 mg PO DAILY 09/25/19 [History] Furosemide [Lasix] 20 mg PO BID 09/25/19 [History] Montelukast [Singulair] 10 mg PO BEDTIME 09/25/19 [History] Nitroglycerin 0.4 mg SL ASDIRECTED PRN 09/25/19 [History] Ranolazine [Ranexa] 500 mg PO BID 09/25/19 [History] Tiotropium Br/Olodaterol HCl [Stiolto Respimat Inhal [place]] 2 puff INH DAILY 09/25/19 [History] fentaNYL [Duragesic] 75 mcg TD ASDIRECTED 09/25/19 [History] oxyCODONE 15 mg PO Q4HR 09/25/19 [History] Amiodarone [Cordarone] 200 mg PO DAILY 11/11/20 [History] Docusate Sodium 100 mg PO BEDTIME PRN 11/11/20 [History] Nystatin [Nystop] 1 applic TOP BID 11/11/20 [History] Promethazine [Phenergan] 25 mg PO BEDTIME PRN 11/11/20 [History] Past Medical History HEENT History: Reports: Other (See Below) Other HEENT History: left eye surgery Cardiovascular History: Reports: Arrhythmia, CAD, Cardiomyopathy, Heart Failure, Hypertension, RI, Pacemaker, PVD, Stents Other Cardiovascular History: pacemaker/defib Respiratory History: Reports: COPD Genitourinary History: Reports: BPH Endocrine/Metabolic History: Reports: None, Diabetes, Type II Other Endocrine/Metabolic History: Primarily controlled with Trulicity 0.75mg q. once weekly. Does have insulin to be used on a regular basis with meals if needed. Rarely uses it. - Past Surgical History Cardiovascular Surgical History: Reports: AICD, Pacer - History Comment History Comment: Chronic pain syndrome. Tape patient takes oxycodone every 6 hours. Social & Family History - Tobacco Use Tobacco Use Status *Q: Never Tobacco User Second Hand Smoke Exposure: No - Caffeine Use Caffeine Use: Reports: None - Recreational Drug Use Recreational Drug Use: No - Living Situation & Occupation Living situation: Reports: Occupation: Retired ED ROS GENERAL - Review of Systems Review Of Systems: See Below Constitutional: Reports: Weakness. Denies: Fever, Chills HEENT: Reports: No Symptoms Respiratory: Reports: Shortness of Breath, Other (He can no longer sleep in the supine position he has to be in a reclined position) Cardiovascular: Reports: Chest Pain (Chest wall pain from the recent fall) GI/Abdominal: Reports: Abdominal Pain. Denies: Constipation, Diarrhea, Nausea, Vomiting : Reports: No Symptoms Musculoskeletal: Reports: No Symptoms Neurological: Reports: Dizziness, Weakness ED EXAM, GENERAL - Physical Exam Exam: See Below Exam Limited By: No Limitations General Appearance: Alert, No Apparent Distress Eye Exam: Bilateral Eye: Normal Inspection Ears: Normal External Exam, Normal Canal, Hearing Grossly Normal, Normal TMs Nose: Normal Inspection, Normal Mucosa, No Blood Throat/Mouth: Normal Inspection, Normal Lips, Normal Gums, Normal Oropharynx, Normal Voice, No Airway Compromise Head: Normocephalic, Other (He has an abrasion over the right occiput with some mild swelling) Neck: Normal Inspection, Supple. No: Limited Range of Motion, Lymphadenopathy (L), Lymphadenopathy (R), Tender Lateral, Tender Midline Respiratory/Chest: No Respiratory Distress, Lungs Clear, Normal Breath Sounds Cardiovascular: Regular Rate, Rhythm, No Edema, No Murmur GI/Abdominal: Normal Bowel Sounds, Soft, Other (Mild right-sided discomfort with palpation) Back Exam: Normal Inspection. No: CVA Tenderness (L), CVA Tenderness (R) Extremities: Normal Inspection, Other (Trace pitting edema) Neurological: Alert, Oriented, Normal Cognition #1 Interpretation EKG Date: 11/11/20 Rhythm: NSR Rate (Beats/Min): 70 [place]: LAD-Left [place] Deviation (Borderline) P-Wave: Present (First-degree AV block) QRS: Other (Possible atypical left bundle branch block versus interventricular conduction delay) ST-T: Other (Disc concordant ST changes with the QRS other than in V3 which is isoelectric) Comparison: No Change (No significant change from 09/25/2019) EKG Interpretation Comments: Abnormal EKG artifact noted as well as above-mentioned abnormalities Course - Vital Signs Last Recorded V/S: Last Vital Signs Temp 36.1 C 11/11/20 10:37 Pulse 68 11/11/20 10:37 Resp 20 11/11/20 10:37 BP 134/86 11/11/20 10:37 Pulse Ox 99 11/11/20 10:37 - Orders/Labs/Meds Labs: Laboratory Tests 11/11/20 11/11/20 11/11/20 Range/Units 10:35 10:35 10:35 WBC 7.61 (4.23-9.07) K/mm3 RBC 4.56 L (4.63-6.08) M/mm3 Hgb 14.1 D (13.7-17.5) gm/dl Hct 44.6 (40.1-51.0) % MCV 97.8 H D (79.0-92.2) fl MCH 30.9 (25.7-32.2) pg MCHC 31.6 L (32.2-35.5) g/dl RDW Std Deviation 51.3 H (35.1-43.9) fL Plt Count 180 (163-337) K/mm3 MPV 10.3 (9.4-12.3) fl Neut % (Auto) 72.8 H (34.0-67.9) % Lymph % (Auto) 14.6 L (21.8-53.1) % Crowley % (Auto) 8.9 (5.3-12.2) % Eos % (Auto) 3.3 (0.8-7.0) Baso % (Auto) 0.1 (0.1-1.2) % Neut # (Auto) 5.54 H (1.78-5.38) K/mm3 Lymph # (Auto) 1.11 L (1.32-3.57) K/mm3 Crowley # (Auto) 0.68 (0.30-0.82) K/mm3 Eos # (Auto) 0.25 (0.04-0.54) K/mm3 Baso # (Auto) 0.01 (0.01-0.08) K/mm3 PT 11.4 (9.7-12.0) SECONDS INR 1.07 APTT 26.8 (21.7-31.4) SECONDS Sodium 144 (136-145) mEq/L Potassium 4.4 (3.5-5.1) mEq/L Chloride 104 (98-107) mEq/L Carbon Dioxide 39 H (21-32) mEq/L Anion Gap 5.4 (5-15) BUN 18 (7-18) mg/dL Creatinine 0.9 (0.7-1.3) mg/dL Est Cr Clr Drug Dosing 88.62 mL/min Estimated GFR (MDRD) > 60 (>60) mL/min BUN/Creatinine Ratio 20.0 H (14-18) Glucose 272 H (70-99) mg/dL Calcium 8.0 L (8.5-10.1) mg/dL Total Bilirubin 0.7 (0.2-1.0) mg/dL AST 12 L (15-37) U/L ALT 25 (16-63) U/L Alkaline Phosphatase 80 (46-116) U/L Troponin I 0.027 (0.00-0.056) ng/mL NT-Pro-B Natriuret Pep (0-125) pg/mL Total Protein 6.6 (6.4-8.2) g/dl Albumin 3.0 L (3.4-5.0) g/dl Globulin 3.6 gm/dL Albumin/Globulin Ratio 0.8 L (1-2) 11/11/20 11/11/20 Range/Units 14:08 14:08 WBC (4.23-9.07) K/mm3 RBC (4.63-6.08) M/mm3 Hgb (13.7-17.5) gm/dl Hct (40.1-51.0) % MCV (79.0-92.2) fl MCH (25.7-32.2) pg MCHC (32.2-35.5) g/dl RDW Std Deviation (35.1-43.9) fL Plt Count (163-337) K/mm3 MPV (9.4-12.3) fl Neut % (Auto) (34.0-67.9) % Lymph % (Auto) (21.8-53.1) % Crowley % (Auto) (5.3-12.2) % Eos % (Auto) (0.8-7.0) Baso % (Auto) (0.1-1.2) % Neut # (Auto) (1.78-5.38) K/mm3 Lymph # (Auto) (1.32-3.57) K/mm3 Crowley # (Auto) (0.30-0.82) K/mm3 Eos # (Auto) (0.04-0.54) K/mm3 Baso # (Auto) (0.01-0.08) K/mm3 PT (9.7-12.0) SECONDS INR APTT (21.7-31.4) SECONDS Sodium (136-145) mEq/L Potassium (3.5-5.1) mEq/L Chloride (98-107) mEq/L Carbon Dioxide (21-32) mEq/L Anion Gap (5-15) BUN (7-18) mg/dL Creatinine (0.7-1.3) mg/dL Est Cr Clr Drug Dosing mL/min Estimated GFR (MDRD) (>60) mL/min BUN/Creatinine Ratio (14-18) Glucose (70-99) mg/dL Calcium (8.5-10.1) mg/dL Total Bilirubin (0.2-1.0) mg/dL AST (15-37) U/L ALT (16-63) U/L Alkaline Phosphatase (46-116) U/L Troponin I < 0.017 (0.00-0.056) ng/mL NT-Pro-B Natriuret Pep 3316 H (0-125) pg/mL Total Protein (6.4-8.2) g/dl Albumin (3.4-5.0) g/dl Globulin gm/dL Albumin/Globulin Ratio (1-2) Meds: Medications Discontinued Medications Generic Name Dose Route Start Last Admin Trade Name Freq PRN Reason Stop Dose Admin Furosemide 40 mg 11/11/20 14:18 11/11/20 14:49 Furosemide 40 Mg/4 Ml Vial IVPUSH 11/11/20 14:19 40 mg NOW ONE Administration Iopamidol 100 ml 11/11/20 11:43 11/11/20 11:45 Iopamidol 612 Mg/Ml 100 Ml Bottle IVPUSH 11/11/20 11:44 100 ml ONETIME ONE Administration Iopamidol 50 ml 11/11/20 11:43 11/11/20 11:45 Iopamidol 612 Mg/Ml 50 Ml Sdv IVPUSH 11/11/20 11:44 50 ml ONETIME ONE Administration Oxycodone HCl 15 mg 11/11/20 14:57 11/11/20 15:23 Oxycodone 15 Mg Tab PO 11/11/20 14:58 15 mg ONETIME ONE Administration Sodium Chloride 10 ml 11/11/20 11:43 11/11/20 11:45 Sodium Chloride 0.9% 10 Ml Syringe FLUSH 10 ml ONETIME PRN Administration IV FLUSH - Re-Assessments/Exams Free Text/Narrative Re-Assessment/Exam: 11/11/20 14:29 We are rechecking a troponin his troponin was normal but in the detectable range. Patient's care has been somewhat delayed it got busy here in the emergency room chest CT was unremarkable for any acute changes as was abdomen and pelvis. Reviewing his labs apparently his CBC did not come across on the orders this is reordered and I also added a BNP but it sounds like he is becoming more more dependent on his oxygen we will give him a dose of Lasix and see how this works for him. 11/11/20 16:59 Patient's had approximately 3500 cc out he is feeling quite a bit better. He is breathing easier. Departure - Departure Time of Disposition: 17:06 Disposition: Home, Self-Care 01 Clinical Impression: Chest wall contusion Congestive heart failure (CHF) Qualifiers: Heart failure type: unspecified Heart failure chronicity: chronic Qualified Code(s): I50.9 - Heart failure, unspecified - Discharge Information Instructions: Contusion, [id number], Heart Failure, Diagnosis, [id number] Referrals: PCP,Not In Area [Primary Care Provider] - Forms: ED Department Discharge Additional Instructions: Return to the emergency room with any questions problems or concerning symptoms. Follow-up with your regular healthcare provider on Saturday and have your potassium rechecked. Increase your Lasix to 2 tablets in the morning continue 1 in the evening. Continue your oxygen pretty much all the time, however, you can slowly start decreasing it during the day when you are completely back to normal. Be very careful with change of position especially going from lying down to standing up it is best to go from lying down to sitting for a few minutes and then slowly stand up or you can hang onto a wall or other solid structure. With your increased diuretic, or water pill, usage you will be more prone to being lightheaded and if you maneuvers such as this will avoid falls. Sepsis Event Note (ED) - Focused Exam Vital Signs: Vital Signs Temp Pulse Resp BP Pulse Ox 11/11/20 10:37 36.1 C 68 20 134/86 99
[2020-11-11] MEDS ORDERED: Sodium Chloride 0.9% 10 ML Syringe FLUSH PRN (11:43)
[2020-11-11] MEDS ORDERED: Iopamidol 612 MG/ML 100 ML Bottle IVPUSH ONE (11:43)
[2020-11-11] MEDS ORDERED: Iopamidol 612 MG/ML 50 ML SDV IVPUSH ONE (11:43)
--- NOTE | 2020-11-11 11:52 | CT ---
Head CT Technique: Multiple axial sections through the brain were obtained. Intravenous contrast was not utilized. Reconstructed coronal and sagittal images were obtained. Comparison: No prior intracranial imaging is available. Findings: Ventricles along with basal cisterns and sulci over the convexities are mildly prominent. Mild diminished density is noted within portions of the periventricular white matter compatible with mild small vessel ischemic demyelination change. Several old lacunar infarcts scattered within the basal ganglia are noted. No other abnormal parenchymal densities are seen. No evidence of intracranial hemorrhage is seen. No midline shift or mass-effect is seen. Bone window settings were reviewed. Visualized mastoid sinuses and paranasal sinuses show nothing acute. No acute calvarial abnormality is appreciated. Vascular calcification is seen within the vertebral vessels and within the carotid siphon. Impression: 1. Senescent change as noted above. 2. Nothing acute is appreciated on noncontrast head CT study. No evidence of intracranial hemorrhage. Diagnostic code #2
--- NOTE | 2020-11-11 11:59 | CT ---
CT chest Technique: Multiple axial sections through the chest were obtained. Intravenous contrast was utilized. Reconstructed coronal and sagittal images were obtained. Comparison: Prior chest x-ray of 09/25/19. Findings: Thoracic aorta shows atherosclerotic calcification. Artifact is noted from AICD. Mediastinum and hilar regions show no adenopathy. Coronary artery calcification is noted. Heart is slightly enlarged. No pericardial thickening is seen. Slight atelectasis is noted within the left lung base. Lungs otherwise are clear without acute parenchymal change. Bone window settings were reviewed which show scattered endplate spurring within the spine. No acute osseous abnormality is appreciated. Impression: 1. Slight left basilar atelectasis. 2. Mild artifact from AICD. 3. Coronary artery calcification and slight cardiomegaly. 4. Nothing acute is otherwise seen on CT study of the chest. Diagnostic code #2 CT abdomen and pelvis Technique: Multiple axial sections were obtained from above the dome of the diaphragm inferiorly through the pubic symphysis. Intravenous contrast was utilized. No oral contrast has been given. Reconstructed coronal and sagittal images were obtained. Comparison: No prior abdominal imaging is available. Findings: Liver contains no focal parenchymal abnormality. Gallbladder contains no calcified gallstones. Spleen appears within normal limits. Adrenal glands show no nodule. Pancreas shows no discrete abnormality. Kidneys show symmetric contrast enhancement. Left kidney shows a small cortical cyst measuring 2.2 cm. Right kidney shows a mixed cortical and parapelvic cyst measuring 5.4 cm. Inferior vena cava filter is noted. Abdominal aorta shows diffuse atherosclerotic change with no aneurysm. Atherosclerotic calcification continues into the iliac vessels. No retroperitoneal adenopathy is seen. No mesenteric abnormalities are noted. No pelvic mass or adenopathy is seen. Bone window settings were reviewed which show prior surgery within the lower pelvis causing metallic artifact. Slight degenerative change is seen within the sacroiliac joints. Mild degenerative change is noted within the lumbar spine. Slight increased density is seen within the right lateral lower abdominal wall presumably due to mild soft tissue swelling which is close to the right hip. Impression: 1. Mild soft tissue swelling within the abdominal wall near the right hip. 2. Other findings as noted above which are felt to be chronic. 3. No other acute abnormality is seen. Diagnostic code #2
[2020-11-11] MEDS ORDERED: Furosemide 40 MG/4 ML VIAL IVPUSH ONE (14:18)
== END 2020-11-11 17:25 | disposition home or self-care (01) ==
LOC: JD.ED 10:33
DX: S20.211A Contusion of right front wall of thorax, initial encounter (principal); I11.0 Hypertensive heart disease with heart failure; I50.9 Heart failure, unspecified; I25.10 Atherosclerotic heart disease of native coronary artery without angina pectoris; I25.2 Old myocardial infarction; E11.9 Type 2 diabetes mellitus without complications; J44.9 Chronic obstructive pulmonary disease, unspecified; Z95.0 Presence of cardiac pacemaker; Z79.02 Long term (current) use of antithrombotics/antiplatelets; Z79.82 Long term (current) use of aspirin; Z79.899 Other long term (current) drug therapy; W18.09XA Striking against other object with subsequent fall, initial encounter; S09.8XXA Other specified injuries of head, initial encounter
CPT/HCPCS: 36415; 70450; 71260; 74177; 80053; 83880; 84484; 85025; 85610; 85730; 93005; 96374; 99284; A9270; J1940; Q9967; 93010